=== PATIENT | male | born 2000 | race Caucasian/White ===

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

== ENCOUNTER 2023-09-19 15:36 | Emergency (ER) | payer MEDICAID, OTHER ==
[~2023-09-19] VITALS: Ht 167.6 cm; Wt 117.9 kg
[2023-09-19 15:48] VITALS: BP_SYST 156; PULSE 77; RESP 22; TEMP 98.3; O2SAT 95
[2023-09-19 16:41] VITALS: BP_SYST 156; PULSE 77; RESP 22; TEMP 98.3; O2SAT 95
== END 2023-09-19 16:45 | disposition home or self-care (01) ==
LOC: SED 15:36
DX: S63.501A Unspecified sprain of right wrist, initial encounter (principal); Z79.899 Other long term (current) drug therapy; X58.XXXA Exposure to other specified factors, initial encounter; Y93.89 Activity, other specified; Y92.89 Other specified places as the place of occurrence of the external cause; Y99.8 Other external cause status
CPT/HCPCS: 99283

== ENCOUNTER 2024-02-06 19:37 | Emergency (ER) | payer SELFPAY ==
[~2024-02-06] VITALS: Ht 170.2 cm; Wt 117.9 kg
[2024-02-06 20:08] VITALS: BP_SYST 163; PULSE 77; RESP 16; TEMP 98.7; O2SAT 95
[2024-02-06] MEDS ORDERED: VIS25 PO (21:33)
[2024-02-06] MEDS: LORazepam 1 MG TABLET PO ONE (21:51)
[2024-02-06 21:52] VITALS: BP_SYST 162; PULSE 73; RESP 16; TEMP 98.7; O2SAT 97
== END 2024-02-06 21:53 | disposition home or self-care (01) ==
LOC: SED 19:37
DX: F41.9 Anxiety disorder, unspecified (principal); F14.10 Cocaine abuse, uncomplicated; F10.90 Alcohol use, unspecified, uncomplicated
CPT/HCPCS: 99283